=== PATIENT | male | born 1960 | race Caucasian/White ===

== ENCOUNTER → 2023-09-08 | Outpatient (CLI) | payer MEDICARE ==
--- NOTE | 2023-09-09 22:30 | MR ---
EXAMINATION TYPE: MR liver wo/w con DATE OF EXAM: 09/08/2023 11:30 AM CLINICAL INDICATION:Male, 62 years old with history of K769 LIVER DISEASE, UNSPECIFIED; Right upper quadrant pain, Ulcerative colitis, COMPARISON: none TECHNIQUE: Multiplanar multi-sequence imaging was performed without contrast. Post contrast imaging was performed. Post IV contrast subtraction images were also submitted for review. IV Contrast: 10 cc Gadavist FINDINGS: LOWER CHEST: No gross irregularity. ABDOMEN Liver: There is signal dropout on chemical shift out of phase imaging compatible with hepatic steatos is. There is a couple areas of focal fatty sparing. High T2 signal right hepatic lobe segment 7 9 mm cyst. In area within the right hepatic lobe which measures arterial phase enhancement which comes isointens e to background liver parenchyma on delayed imaging suggestive of shunt phenomenon series 901 image 4 7 and 46. Measuring wedge-shaped area of the dome. High T2 signal lesion in the right hepatic lobe posteriorly measuring 14 x 12 mm which demonstrate pr ogressive enhancement on delayed imaging suggestive of hemangioma. Around this lesion on the early ar terial phase imaging there is shunt phenomenon present. Gallbladder and Bile ducts: Smooth tapering with some ductal dilation centrally in the intrahepatic b ile ducts. There is a right lower lumbar area of focal ductal dilation 12/12/2000 image 17 through 25 a nd postcontrast imaging series 901 image 259. No evidence for biliary stricture or evidence of choled ocholithiasis. The gallbladder is within normal limits. Pancreas: No ductal dilation. No evidence for solid mass. Spleen: Normal for size. Adrenal glands: Unremarkable. Kidneys: No evidence for obstructive uropathy. No suspicious renal masses. Stomach and Bowel: No evidence for bowel wall thickening or evidence for obstruction.. Peritoneum: No evidence of pneumoperitoneum or free fluid. Vasculature: No aortic aneurysm. Musculoskeletal: The osseous structures appear intact. Lymph Nodes: No gross evidence for lymphadenopathy. Abdominal wall: Unremarkable. IMPRESSION: 1. Mild intrahepatic ductal dilation with smooth tapering. Additional area in segment 6 of biliary d uctal dilation which extends towards the periphery is also present. No hepatic mass visualized. Consi sharonda MRI MRCP with IV contrast and 6 months to ensure stability. 2. Right hepatic lobe segment 6 hemangioma. 3. Hepatic steatosis with focal fatty sparing.
== END | disposition home or self-care (01) ==
LOC: RADMRIMAIN 10:43
PROVIDERS: ATTEND Internal Medicine Gastroenterology
DX: D18.03 Hemangioma of intra-abdominal structures (principal); K76.0 Fatty (change of) liver, not elsewhere classified; K76.9 Liver disease, unspecified; K51.90 Ulcerative colitis, unspecified, without complications
CPT/HCPCS: 74183; A9585

== ENCOUNTER → 2023-12-18 | Outpatient (CLI) | payer MEDICARE ==
--- NOTE | 2023-12-19 08:54 | US ---
EXAMINATION TYPE: US arterial LE single level DATE OF EXAM: 12/18/2023 8:47 AM CLINICAL INDICATION: Male, 63 years old with history of M79.661 PAIN IN RIGHT LOWER LEG M79.662 PAIN IN LE; numb feet x 3 months History of: Smoker: previous Hypertension: y Diabetic: n Hyperlipidemia: y TIA/CVA: n Previous Vascular Surgery: n CAD: n [place]: n Vascular Ulcers: n Claudication: n Gangrene: n Doppler Waveforms: Right: Multiphasic Left: Multiphasic Right Brachial Pressure: 150 Left Brachial Pressure: 144 Ankle-Brachial Indices: Right: 1.1 Left: 1.0 Toe Brachial Indices: Right: 0.9 Left: 0.8 IMPRESSION: Ankle brachial indices within normal limits bilaterally.
== END | disposition home or self-care (01) ==
LOC: RADUSWWP 08:24
PROVIDERS: ATTEND Family Medicine
DX: M79.661 Pain in right lower leg (principal); M79.662 Pain in left lower leg; I10 Essential (primary) hypertension; E78.5 Hyperlipidemia, unspecified; R20.0 Anesthesia of skin
CPT/HCPCS: 93922

== ENCOUNTER → 2024-02-29 | Outpatient (CLI) | payer MEDICARE ==
--- NOTE | 2024-03-02 18:24 | CT ---
EXAMINATION TYPE: CT abdomen pelvis wo/w con DATE OF EXAM: 02/29/2024 COMPARISON: None INDICATION: Hematuria. DLP: 2761 mGycm, Automated exposure control for dose reduction was used. CONTRAST: 100ml mL of Isovue 300. Study performed with Oral Contrast TECHNIQUE: Axial images were obtained from above the diaphragm to the pubic rami in the axial plane a t 5 mm thick sections. Reconstructed images are reviewed on the computer in the coronal plane. FINDINGS: Limited CT sections are obtained the lung bases. Calcified granulomas in the lateral right lung base . Couple of calcified granulomata in the posterior left lung base.. CT ABDOMEN: Liver: Normal Spleen: Normal Pancreas: Normal Adrenal glands: The adrenal glands are normal. Gallbladder: Normal Kidneys: There is a small hyperdensity within the superiorr posterior left kidney measuring approxima tely 1.1 cm.. No hydronephrosis is present. No cysts are present. Delayed images were obtained thr ough the kidneys, which remain unremarkable. Aorta: Vascular calcification is within the aorta. Inferior vena cava: Normal. CT PELVIS: Loops of bowel within the abdomen and pelvis are normal. There are loops of bowel which are incom pletely distended or lack oral contrast limiting their evaluation. Appendix: There may be an appendicolith present. No suspicious dilated structure or inflammatory echeverria ges. Urinary bladder: Normal. Genitourinary structures: Prostate is prominent. Calcifications within the prostate. Osseous structures: No suspicious lytic or sclerotic lesions. IMPRESSION: 1. No discrete abnormality to account for hematuria. 2. There is a nonspecific slightly hyperdense lesion within the posterior superior left kidney. 3. Calcified granuloma within the lung bases
== END | disposition home or self-care (01) ==
LOC: RADCTMAIN 15:22
PROVIDERS: ATTEND Urology
DX: N28.9 Disorder of kidney and ureter, unspecified (principal); R31.1 Benign essential microscopic hematuria; J84.10 Pulmonary fibrosis, unspecified
CPT/HCPCS: 74178; Q9967

== ENCOUNTER → 2024-03-18 | Outpatient (CLI) | payer MEDICARE ==
--- NOTE | 2024-03-22 20:49 | MR ---
EXAMINATION TYPE: MR MRCP DATE OF EXAM: 03/18/2024 8:30 AM CLINICAL INDICATION:Male, 63 years old with history of K76.9 LIVER DISEASE UNSPECIFIED; PHH, Right si ded abdominal pain, hx cholecystectomy. COMPARISON: 02/29/2024, 09/09/2023 TECHNIQUE: Multi planar, T2-weighted imaging with and without fat saturation and chemical shift imag ing was performed of the abdomen. Then, heavily T2 weighted imaging (half-Fourier acquisition single- shot turbo spin-echo) was utilized in order to study the biliary system. Maximum intensity projectio n images were reconstructed from the original data of the biliary tree. 3D images were created on a [employer] work station. No Gadolinium given. FINDINGS: Lower Thorax: No evidence for acute process. MRCP: * The intrahepatic ducts have a normal appearance. * The common hepatic duct measures 7 mm in size. * The common bile duct at the level of the pancreatic head measures 5 mm in size. * The pancreatic duct is normal. * The gallbladder appears surgically absent. * Similar Smooth tapering with some ductal dilation centrally in the intrahepatic bile ducts. There is a right lower lumbar area of focal ductal dilation 12/12/2000 image 17 through 25 and postcontrast imag ing series 901 image 259. No evidence for biliary stricture or evidence of choledocholithiasis. The g allbladder is within normal limits. ABDOMEN Liver: There is signal dropout on chemical shift out of phase imaging compatible with hepatic steatos is. There is a couple areas of focal fatty sparing. High T2 signal right hepatic lobe segment 7 9 mm cyst which is unchanged.. High T2 signal lesion in the right hepatic lobe posteriorly measuring 14 x 12 mm which demonstrated p rogressive enhancement on delayed imaging on prior MRI on 09/08/2023 was most compatible with benign h emangioma. Pancreas: No ductal dilation. No evidence for solid mass. Spleen: Normal for size. Small splenule is present. Adrenal glands: Unremarkable. Kidneys: No evidence for obstructive uropathy. No suspicious renal masses. High T2 signal probable re nal cysts. Including left hemorrhagic/proteinaceous cyst which is intrinsic higher T1 signal and lowe r T2 signal measuring up to 17 mm. Stomach and Bowel: No evidence for bowel wall thickening or evidence for obstruction.. Scattered col onic diverticula. Peritoneum: No evidence of pneumoperitoneum or free fluid. Vasculature: No aortic aneurysm. Musculoskeletal: The osseous structures appear intact. Lymph Nodes: No gross evidence for lymphadenopathy. Abdominal wall: Unremarkable. IMPRESSION: 1. Stable findings with Mild intrahepatic ductal dilation with smooth tapering. No suspicious masses . 2. Right hepatic lobe segment 6 hemangioma is stable in size. 3. Hepatic steatosis with focal fatty sparing. 4. Hemorrhagic/proteinaceous left renal cyst is stable.
== END | disposition home or self-care (01) ==
LOC: RADMRIMAIN 07:33
PROVIDERS: ATTEND Internal Medicine Gastroenterology
DX: D18.03 Hemangioma of intra-abdominal structures (principal); K76.0 Fatty (change of) liver, not elsewhere classified; N28.1 Cyst of kidney, acquired
CPT/HCPCS: 74181